=== PATIENT | female | born 1985 | race Caucasian/White ===

== ENCOUNTER 2018-11-23 07:41 | Emergency (ER) | payer MEDICAID ==
[2018-11-23] MEDS: IBUPROFEN 600 MG TAB PO (08:09)
== END 2018-11-23 08:52 | disposition home or self-care (01) ==
LOC: FTE 07:41
DX: H60.312 Diffuse otitis externa, left ear (principal); H61.22 Impacted cerumen, left ear; R40.2412 Glasgow coma scale score 13-15, at arrival to emergency department
CPT/HCPCS: 69210; 99282-25